=== PATIENT | male | born 1960 | race African-American/Black ===

== ENCOUNTER 2019-01-02 08:56 | Inpatient (IN) ==
[2019-01-02] MEDS ORDERED: Sodium Chloride 0.9% 1,000 ML PRIMARY IV ONE (09:19)
[2019-01-02] MEDS ORDERED: NITROGLYCERIN 0.4 MG SL TAB (BOTTLE OF 3) SL PRN (09:19)
[2019-01-02 09:27] LABS: BASOPHILS # (AUTO) 0.01 10*3/UL; BASOPHILS % (AUTO) 0.2 % (0-1); EOSINOPHILS # (AUTO) 0.02 10*3/UL; EOSINOPHILS % (AUTO) 0.4 % (0-8); Hematocrit [HCT] 51.2 % (42.0-52.0); Hemoglobin [HGB] 16.4 g/dL (14.0-18.0); LYMPHOCYTES # (AUTO) 1.21 10*3/uL; MEAN CORPUSCULAR VOLUME 93.3 FL (80-90); MEAN PLATELET VOLUME 10.8 FL (7.4-12.2); MONOCYTES # (AUTO) 0.51 10*3/UL (0.3-0.8); MONOCYTES % (AUTO) 10.6 % (5-15); NEUTROPHILS # (AUTO) 3.05 10*3/UL; NEUTROPHILS % (AUTO) 63.4 % (50-80); RED BLOOD COUNT 5.49 10^6/uL (4.70-6.10)
[2019-01-02 09:28] LABS: PLATELET MORPHOLOGY COMMENT NORMAL MORPHOLOGY (NORM); RBC MORPHOLOGY COMMENT NORMAL MORPHOLOGY (NORM); WBC MORPHOLOGY COMMENT NORMAL MORPHOLOGY (NORM)
[2019-01-02 09:31] LABS: BUN/CREATININE RATIO 17.14 (6-20); SERUM ALBUMIN 4.1 g/dL (3.5-4.8)
[2019-01-02 11:05] LABS: BILIRUBIN,URINE SMALL (NEG); CLARITY,URINE CLEAR (CLEAR); COLOR,URINE YELLOW; GLUCOSE, URINE (UA) NEGATIVE (NEG); OCCULT BLOOD,URINE Trace-intact (NEG); PH,URINE 5.5 (5.0-8.5); PROTEIN,URINE 100 mg/dl (NEG); UROBILINOGEN,URINE 0.2 mg/dL (0.2)
[2019-01-02 11:07] LABS: RBC,URINE 0-1 /hpf; URINE SAMPLE TYPE CLEAN CATCH URINE
[2019-01-02] MEDS ORDERED: ONDANSETRON 4 MG/2 ML VIAL IVP PRN (13:01)
[2019-01-02] MEDS ORDERED: CALCIUM CARBONATE 500 MG (TUMS) CHEWABLE TABLET PO PRN (13:01)
[2019-01-02] MEDS ORDERED: ACETAMINOPHEN 325 MG TABLET PO PRN (13:01)
[2019-01-02] MEDS ORDERED: DOCUSATE 100 MG CAPSULE PO PRN (13:01)
[2019-01-02] MEDS ORDERED: LIDOCAINE W/ SODIUM BICARB 0.5 ML SYR SUBD PRN (13:01)
[2019-01-02] MEDS ORDERED: Influenza 19-20 Vaccine (6mo+) 60 MCG/0.5 ML SYRINGE IM ONE (13:07)
[2019-01-02] MEDS ORDERED: FUROSEMIDE 10 MG/1 ML - 10 ML IVP ONE (15:34)
[2019-01-02] MEDS ORDERED: LISINOPRIL 20 MG TABLET PO ONE (15:34)
[2019-01-02 17:18] VITALS: BP 160/106; RESP 18; TEMP 97.6; O2SAT 95
[2019-01-03] MEDS ORDERED: LISINOPRIL 20 MG TABLET PO SCH (09:00)
[2019-01-03] MEDS ORDERED: ASPIRIN 325 MG TABLET PO SCH (09:00)
== END 2019-01-02 17:25 | disposition short-term general hospital (02) | DRG 293 ==
LOC: ER 08:56 → MED/SURG 12:09
PROVIDERS: ADMIT Family Medicine; ATTEND Family Medicine